=== PATIENT | female | born 2000 | race Caucasian/White ===

== ENCOUNTER 2018-06-03 10:56 | Inpatient (IN) | payer OTHER ==
[2018-06-03] MEDS: LACTATED RINGER'S 1000 ML IV (12:39)
[2018-06-03] MEDS: LR 1,000 ML IV ×3 (12:39→19:27)
[2018-06-03 12:48] LABS: HEMATOCRIT 29.1 % (36.0-47.0); HEMOGLOBIN 9.9 g/dl (12.0-15.5); MEAN CORPUSCULAR HEMOGLOBIN 29.2 pg (27.0-33.0); MEAN CORPUSCULAR VOLUME 85.8 fl (80.0-96.0); PLATELET COUNT, AUTOMATED 260 10^3/uL (150-450); RED BLOOD COUNT 3.39 10^6/uL (4.00-5.40); RED CELL DISTRIBUTION WIDTH 12.9 % (11.5-14.5)
[2018-06-03] MEDS: OXYTOCIN DRIP 30 UNITS in APPROPRIATE DILUENT 1 EA IV (12:55)
[2018-06-03 13:16] LABS: CREATININE,RANDOM URINE 42.8 MG/DL
[2018-06-03 13:16] LABS: TOTAL PROTEIN,RANDOM URINE 11.3 MG/DL (0.0-12.0)
[2018-06-03 13:17] LABS: ALT/SGPT 14 U/L (12-78); AST/SGOT 11 U/L (7-37); BILIRUBIN,TOTAL 0.5 MG/DL (0.2-1.0); CREATININE FOR GFR 0.63 MG/DL (0.55-1.30); LDH LACTATE DEHYDROGENASE 227 U/L (84-246); URIC ACID 3.3 MG/DL (2.6-6.0)
[2018-06-03] MEDS ORDERED: FENTANYL 2MCG/ML ROPIVACAINE 0.2% IN 0.9% NACL 200ML IVBAG As Ordered (17:54)
[2018-06-03] MEDS ORDERED: LACTATED RINGER'S 1000 ML IV (19:30)
[2018-06-03] MEDS ORDERED: EPIDURAL/PCA KEYS XX (19:30)
[2018-06-03] MEDS ORDERED: ONDANSETRON 4MG/2ML VIAL (J2405) IV (19:30)
[2018-06-03] MEDS ORDERED: diphenhydrAMINE INJ 50MG/ML VIAL (J1200) IV (19:30)
[2018-06-03] MEDS ORDERED: FENTANYL/ROPIVACAINE/NACL BAG 200 ML EPIDURAL (19:30)
[2018-06-03] MEDS ORDERED: NALOXONE INJ 0.4 MG/1 ML VIAL (J2310) IV (19:30)
[2018-06-03] MEDS ORDERED: REFRIGERATOR IV KEYS XX (19:30)
[2018-06-03] MEDS ORDERED: ePHEDrine SULFATE 25 MG/5 ML(5MG/ML) SYRINGE IV (19:30)
[2018-06-03] MEDS ORDERED: EPIDURAL COMMENT XX (19:30)
[2018-06-04] MEDS: OXYTOCIN DRIP 30 UNITS in APPROPRIATE DILUENT 1 EA IV (00:40)
[2018-06-04] MEDS: LIDOCAINE 1% MDV 20ML VIAL INFIL (00:45)
[2018-06-04] MEDS ORDERED: DOCUSATE SODIUM 100 MG CAP PO (00:45)
[2018-06-04] MEDS ORDERED: ACETAMINOPHEN 500 MG TAB PO (00:45)
[2018-06-04] MEDS ORDERED: DIBUCAINE 1% OINTMENT 30GM TOP (00:45)
[2018-06-04] MEDS ORDERED: RHOGAM 300 MCG (1500 IU) INJ (J2790) IM (00:45)
[2018-06-04] MEDS ORDERED: MEASLES,MUMPS,RUBELLA VACCINE INJ (MMR-II) (90707) SC (00:45)
[2018-06-04] MEDS: IBUPROFEN 800 MG TAB PO ×2 (01:19→09:07)
[2018-06-04] MEDS: PRENATAL VITAMINS CHEWABLE TABLET PO (09:06)
[2018-06-05] MEDS: IBUPROFEN 800 MG TAB PO ×2 (00:03→17:32)
[2018-06-05] MEDS: PRENATAL VITAMINS CHEWABLE TABLET PO (10:21)
[2018-06-06] MEDS: PRENATAL VITAMINS CHEWABLE TABLET PO (07:59)
== END 2018-06-06 08:00 | disposition home or self-care (01) | DRG 775 ==
LOC: M LDO 10:56 → M OBS 06-04 02:37 → M LDI 11:42
PROC: 10E0XZZ Delivery of Products of Conception, External Approach (ICD-10-PCS; principal; 2018-06-03)
PROC: 0HQ9XZZ Repair Perineum Skin, External Approach (ICD-10-PCS; 2018-06-03)
PROC: 3E033VJ Introduction of Other Hormone into Peripheral Vein, Percutaneous Approach (ICD-10-PCS; 2018-06-03)
PROC: 10907ZC Drainage of Amniotic Fluid, Therapeutic from Products of Conception, Via Natural or Artificial Opening (ICD-10-PCS; 2018-06-03)
DX: O13.4 Gestational [pregnancy-induced] hypertension without significant proteinuria, complicating childbirth (principal); O99.214 Obesity complicating childbirth; Z3A.38 38 weeks gestation of pregnancy; E66.3 Overweight; Z37.0 Single live birth; O70.0 First degree perineal laceration during delivery

== ENCOUNTER 2019-02-21 18:14 | Emergency (ER) | payer OTHER ==
[~2019-02-21] VITALS: Ht 170.2 cm; Wt 84.1 kg
[~2019-02-21 18:14] MED LIST: IBUP-1114 PO; MAPA500T2 PO; NUPE1OIN2 TOP; PRENTAB9 PO
[2019-02-21 18:15] VITALS: BP 125/79
[2019-02-21] MEDS ORDERED: IBUP-1022 PO (19:59)
--- NOTE | 2019-02-22 09:05 | REP ---
HISTORY: Trauma. COMPARISON: None. There is a lucency seen involving the volar plate of the middle phalanx of the fourth digit seen on two views. The margins appear smooth, however, there does appear to be associated soft tissue swelling. IMPRESSION: Age undetermined volar plate fracture middle phalanx, fourth digit. Electronically Signed by David Ceron DO 02/22/2019 09:13 A
== END 2019-02-21 20:21 | disposition home or self-care (01) ==
LOC: M ED 18:14
DX: S62.645A Nondisplaced fracture of proximal phalanx of left ring finger, initial encounter for closed fracture (principal); W23.1XXA Caught, crushed, jammed, or pinched between stationary objects, initial encounter; Y92.098 Other place in other non-institutional residence as the place of occurrence of the external cause

== ENCOUNTER 2019-03-28 18:53 | Emergency (ER) | payer OTHER ==
[~2019-03-28] VITALS: Ht 170.2 cm; Wt 81.8 kg
[~2019-03-28 18:53] MED LIST changes: +IBUP-1022 PO
[2019-03-28] MEDS ORDERED: LIDOCAINE 1% SDV 5 ML VIAL DILUENT ONE (20:45)
[2019-03-28] MEDS ORDERED: cefTRIAXone SOD 250 MG VIAL (J0696) IM ONE (20:45)
[2019-03-28] MEDS ORDERED: AZITHROMYCIN 250 MG TAB PO ONE (20:45)
[2019-03-28 21:13] LABS: APPEARANCE, URINE CLOUDY (CLEAR); BACTERIA, URINE AUTO 2+ (NEGATIVE); BILIRUBIN, URINE AUTO NEGATIVE (NEGATIVE); BLOOD, URINE BLOOD 1+ (NEGATIVE); COLOR, URINE YELLOW (YELLOW); GLUCOSE, URINE (UA) AUTO NEGATIVE (NEGATIVE); KETONE, URINE AUTO NEGATIVE (NEGATIVE); LEUKOCYTE ESTERASE, URINE AUTO 3+ (NEGATIVE); NITRITE, URINE AUTO NEGATIVE (NEGATIVE); PROTEIN, URINE AUTO NEGATIVE (NEGATIVE); RBC, URINE AUTO 5 /HPF (0-3); SQUAMOUS EPITHELIAL CELL UR AU 14 /HPF (0-6); UROBILINOGEN, URINE AUTO 0.2 mg/dL (0.0-2.0); WBC, URINE AUTO 32 /HPF (0-3)
[2019-03-28 21:14] VITALS: BP 128/81
[2019-03-28 22:56] LABS: CHLAMYDIA DNA AMPLIFICATION POSITIVE (NEGATIVE); GC DNA AMPLIFICATION NEGATIVE (NEGATIVE)
== END 2019-03-28 21:16 | disposition home or self-care (01) ==
LOC: M ED 18:53
DX: A56.02 Chlamydial vulvovaginitis (principal); Z77.098 Contact with and (suspected) exposure to other hazardous, chiefly nonmedicinal, chemicals
CPT/HCPCS: 81001; 84702; 87661; 96372; 99283; J0696

== ENCOUNTER 2019-04-06 09:35 | Emergency (ER) | payer OTHER ==
[~2019-04-06] VITALS: Ht 170.2 cm; Wt 82.9 kg
--- NOTE | 2019-04-06 10:40 | REP ---
Clinical: Trauma/fall with pain . Technique: AP, lateral, bilateral oblique views left wrist . Findings: The carpal bones, surrounding osseous structures, soft tissues, and joint spaces are normal. There is no evidence for acute fracture or dislocation. No subcutaneous emphysema or radiodense foreign body. Impression: Normal wrist series. No acute fracture or dislocation Electronically Signed by Jabari Doll MD 04/06/2019 10:31 A
[2019-04-06 10:50] VITALS: BP 123/72
== END 2019-04-06 11:00 | disposition home or self-care (01) ==
LOC: M ED 09:35
DX: S63.502A Unspecified sprain of left wrist, initial encounter (principal); W08.XXXA Fall from other furniture, initial encounter; Y92.009 Unspecified place in unspecified non-institutional (private) residence as the place of occurrence of the external cause; Y93.9 Activity, unspecified